=== PATIENT | female | born 1955 | race Two or more races ===

== ENCOUNTER 2017-03-26 18:20 | Emergency (ER) | payer MEDICARE ==
--- NOTE | 2017-03-26 20:13 | ER Document Report ---
ED Medical Screen (RME) - General Chief Complaint: Lower Abdominal Pain Stated Complaint: URINARY PROBLEM Time Seen by Provider: 03/26/17 20:06 Notes: Patient has had pain in the lower abdomen, suprapubic region, for about 2 weeks. It now goes around to the right flank, as well. She had a history of UTIs in the past with very similar symptoms to what she is having currently. However, she also has some other medical conditions including diverticulitis. She is nauseated but not vomiting. No chest pains. No cough or cold or chest congestion. Has felt like she had a fever. History of hypertension and NIDDM. Patient speaks only Greek so we used our metal products viewer Tomasa. TRAVEL OUTSIDE OF THE [place] IN LAST 30 DAYS: No - Related Data Allergies/Adverse Reactions: aspirin Allergy (Verified 03/26/17 18:29) Past Medical History - Social History Chew tobacco use (# tins/day): No Frequency of alcohol use: None Drug Abuse: None - Past Medical History Cardiac Medical History: Reports: Hx Hypertension Endocrine Medical History: Reports: Hx Diabetes Mellitus Type 2 Renal/ Medical History: Denies: Hx Peritoneal Dialysis GI Medical History: Reports: Hx Gastroesophageal Reflux Disease Musculoskeltal Medical History: Reports Hx Arthritis - RA Surgical Hx: Negative - Immunizations Hx Diphtheria, Pertussis, Tetanus Vaccination: Yes Physical Exam - Vital signs Vitals: Temp Pulse Resp BP Pulse Ox 98.1 F 68 16 177/80 H 96 03/26/17 18:31 03/26/17 18:31 03/26/17 18:31 03/26/17 18:31 03/26/17 18:31 Course - Vital Signs Vital signs: Temp Pulse Resp BP Pulse Ox 98.1 F 68 16 177/80 H 96 03/26/17 18:31 03/26/17 18:31 03/26/17 18:31 03/26/17 18:31 03/26/17 18:31
[2017-03-26 20:41] LABS: ABSOLUTE BASOPHILS # (AUTO) 0.1 10^3/uL (0.0-0.2); ABSOLUTE EOSINOPHILS # (AUTO) 0.1 10^3/uL (0.0-0.6); ABSOLUTE LYMPHOCYTES (AUTO) 2.5 10^3/uL (0.5-4.7); ABSOLUTE MONOCYTES (AUTO) 0.5 10^3/uL (0.1-1.4); BASOPHILS % (AUTO) 0.6 % (0-2); EOSINOPHILS % (AUTO) 1.1 % (0-6); HEMATOCRIT 41.2 % (36.0-47.0); HEMOGLOBIN 13.5 g/dL (12.0-15.5); HGB HCT DIFFERENCE -0.7; LYMPHOCYTES % (AUTO) 30.2 % (13-45); MEAN CORPUSCULAR HGB CONC 32.7 g/dL (32.0-36.0); MEAN CORPUSCULAR VOLUME 86 fl (80-97); MONOCYTES % (AUTO) 6.7 % (3-13); RED BLOOD COUNT 4.82 10^6/uL (3.72-5.28); SEGMENTED NEUTROPHILS % (AUTO) 61.4 % (42-78); WHITE BLOOD COUNT 8.2 10^3/uL (4.0-10.5)
[2017-03-26 20:46] LABS: APPEARANCE,URINE CLEAR; BILIRUBIN,URINE NEGATIVE (NEGATIVE); GLUCOSE, URINE NEGATIVE (NEGATIVE); KETONES,URINE NEGATIVE (NEGATIVE); LEUKOCYTE ESTERASE,URINE NEGATIVE (NEGATIVE); NITRITE,URINE NEGATIVE (NEGATIVE); PROTEIN,URINE NEGATIVE (NEGATIVE); URINE SPECIFIC GRAVITY 1.001; UROBILINOGEN,URINE NEGATIVE mg/dL (<2.0)
[2017-03-26 21:08] LABS: ALANINE AMINOTRANSFERASE 23 U/L (9-52); ALBUMIN 4.3 g/dL (3.5-5.0); ALKALINE PHOSPHATASE 89 U/L (38-126); ANION GAP 11 (5-19); ASPARTATE AMINO TRANSFERASE 23 U/L (14-36); BILIRUBIN,DIRECT 0.2 mg/dL (0.0-0.4); BILIRUBIN,TOTAL 0.5 mg/dL (0.2-1.3); BLOOD UREA NITROGEN 8 mg/dL (7-20); CALCIUM 9.9 mg/dL (8.4-10.2); CARBON DIOXIDE 26 mmol/L (22-30); CHLORIDE 95 mmol/L (98-107); CREATININE RESULT 0.59 mg/dL (0.52-1.25); GLUCOSE 78 mg/dL (75-110); LIPASE 201.2 U/L (23-300); POTASSIUM 3.9 mmol/L (3.6-5.0); TOTAL PROTEIN 7.4 g/dL (6.3-8.2)
--- NOTE | 2017-03-26 21:47 | ER Document Report ---
ED GI/ - General Mode of Arrival: Ambulatory Information source: Patient, Relative TRAVEL OUTSIDE OF THE [place] IN LAST 30 DAYS: No - HPI Onset: Other - Refer to HPI notes <SIRIA HARTMAN - Last Filed: 03/26/17 22:39> <CASSIE MARINA - Last Filed: 03/27/17 02:24> - General Chief Complaint: Lower Abdominal Pain Stated Complaint: URINARY PROBLEM Time Seen by Provider: 03/26/17 20:06 Notes: Patient is a 61 year old female presenting to the emergency department for suprapubic abdominal pain and umbilical abdominal pain. Patient is from [place] visiting her daughter and has been here for 2 weeks and a few days; patient's pain has been present for about 2 weeks. Patient also has nausea but no vomiting. Patient has not taken her temperature but states she has woken up with sweats and has been really thirsty. Patient also complains of some back pain. Patient is Tajik speaking and her daughter translates all information during the HPI, exam etc. Patient has had previous UTIs and has had diverticulitis in the past. Patient also has a history of diabetes mellitus, GERD, hypertension, and rheumatoid arthritis. (SIRIA HARTMAN) - Related Data Allergies/Adverse Reactions: aspirin Allergy (Verified 03/26/17 18:29) Past Medical History - General Information source: Patient - Social History Smoking Status: Never Smoker Cigarette use (# per day): No Chew tobacco use (# tins/day): No Smoking Education Provided: No Frequency of alcohol use: None Drug Abuse: None Family History: None Patient has suicidal ideation: No Patient has homicidal ideation: No - Past Medical History Cardiac Medical History: Reports: Hx Hypertension Endocrine Medical History: Reports: Hx Diabetes Mellitus Type 2 GI Medical History: Reports: Hx Diverticulitis, Hx Gastroesophageal Reflux Disease Musculoskeltal Medical History: Reports Hx Arthritis - RA Surgical Hx: Negative - Immunizations Hx Diphtheria, Pertussis, Tetanus Vaccination: Yes <SIRIA HARTMAN - Last Filed: 03/26/17 22:39> Review of Systems - Review of Systems Constitutional: No symptoms reported EENT: No symptoms reported Cardiovascular: No symptoms reported Respiratory: No symptoms reported Gastrointestinal: See HPI, Abdominal pain Genitourinary: No symptoms reported Female Genitourinary: No symptoms reported Musculoskeletal: See HPI, Back pain Skin: No symptoms reported Hematologic/Lymphatic: No symptoms reported Neurological/Psychological: No symptoms reported -: Yes All other systems reviewed and negative <SIRIA HARTMAN - Last Filed: 03/26/17 22:39> Physical Exam - Vital signs Interpretation: Hypertensive <SIRIA HARTMAN - Last Filed: 03/26/17 22:39> <LAINAJENYN AlbrechtCASSIE - Last Filed: 03/27/17 02:24> - Vital signs Vitals: Temp Pulse Resp BP Pulse Ox 98.1 F 68 16 177/80 H 96 03/26/17 18:31 03/26/17 18:31 03/26/17 18:31 03/26/17 18:31 03/26/17 18:31 - Notes Notes: GENERAL: Alert, interacts well. No acute distress. HEAD: Normocephalic, atraumatic. EYES: Pupils equal, round, and reactive to light. Extraocular movements intact. ENT: Oral mucosa moist, tongue midline. NECK: Full range of motion. Supple. Trachea midline. LUNGS: Clear to auscultation bilaterally, no wheezes, rales, or rhonchi. No respiratory distress. HEART: Regular rate and rhythm. No murmurs, gallops, or rubs. ABDOMEN: Soft, umbilical and suprapubic tenderness with palpation, firm mass over the suprapubic region. Obese. Non-distended. Bowel sounds present in all 4 quadrants. EXTREMITIES: Moves all 4 extremities spontaneously. No edema. NEUROLOGICAL: Alert and oriented x3. Normal speech, Tajik speaking. PSYCH: Normal affect, normal mood. SKIN: Warm, dry, normal turgor. No rashes or lesions noted. (SIRIA HARTMAN) Course - Laboratory Result Diagrams: 03/26/17 20:10 03/26/17 20:10 <SIRIA HARTMAN - Last Filed: 03/26/17 22:39> - Laboratory Result Diagrams: 03/26/17 20:10 03/26/17 20:10 - Diagnostic Test Radiology reviewed: Image reviewed, Reports reviewed - Double contrasted CT scan of the abdomen and pelvis does not show any abnormality. <CASSIE MARINA - Last Filed: 03/27/17 02:24> - Re-evaluation Re-evalutation: 03/27/17 02:[address] scan is unremarkable. The white blood cell count is low normal with no suggestion of infection. The pain started shortly after she arrived here from [place]. I suspect she did some heavy lifting of luggage and that is what is causing her abdominal pain. She does have a history of diverticulosis and a doctor who will frequently put her on antibiotics for her abdominal discomfort. I explained to the patient through her daughter that there was no suggestion of inflammation, diverticulitis, and the fact that this is been going on for 2 weeks without any development of inflammatory process, it was very unlikely to be anything other than muscle strain. (CASSIE MARINA) - Vital Signs Vital signs: Temp Pulse Resp BP Pulse Ox 98.1 F 67 16 158/96 H 96 03/26/17 18:31 03/26/17 21:33 03/26/17 21:33 03/26/17 21:33 03/26/17 21:33 - Laboratory Laboratory results interpreted by me: 03/26/17 20:10 Sodium 132.0 L Chloride 95 L Discharge <SIRIA HARTMAN - Last Filed: 03/26/17 22:39> <CASSIE MARINA - Last Filed: 03/27/17 02:24> - Discharge Clinical Impression: Abdominal pain Qualifiers: Abdominal location: lower abdomen, unspecified Qualified Code(s): R10.30 - Lower abdominal pain, unspecified Condition: Stable Disposition: HOME, SELF-CARE Additional Instructions: Abdominal Pain: There are many causes of abdominal pain. Pain can mean a serious problem requiring surgery (such as appendicitis). It can also be an innocent problem that goes away on its own (such as a viral infection). Often, time must pass to determine the cause of pain. The physician does not feel that hospitalization is necessary, at present. Things may change within the next 24 hours. Call the doctor or come back for re- examination if any problems occur, such as: (1) Pain that becomes more severe, steady, or becomes concentrated in one specific area. Also, pain that is more severe with movement or coughing. (2) Vomiting that persists or becomes more frequent. (3) Blood in the vomitus, urine, or bowel movements. Blood in the stool may have a tarry or black appearance. (4) Shaking chills or fever greater than 100 degrees F. (5) The abdomen becomes more distended or swollen. (6) Bowel movements cease. (7) Failure to improve as expected. Your lab work does not show any abnormalities to suggest an infectious process. Your contrasted CT scan of the abdomen and pelvis does not show any abnormality. I suspect your anterior abdominal discomfort for the last 2 weeks may be related to muscle strain. Try to avoid any activity that seems to make your discomfort worse. RETURN TO THE EMERGENCY ROOM IF ANY NEW OR WORSENING SYMPTOMS. Scribe Documentation - Scribe Written by Sasha:: Sasha Glass 03/26/2017 22:45 acting as scribe for :: Laina <SIRIA HARTMAN - Last Filed: 03/26/17 22:39>
--- NOTE | 2017-03-27 02:01 | RADIOLOGY REPORT (SQ) ---
EXAM DESCRIPTION: CT ABD/PELVIS WITH IV ORAL COMPLETED DATE/TIME: 03/27/2017 1:29 am REASON FOR STUDY: LOWER ABD PAIN X 2 WEEKS COMPARISON: None. TECHNIQUE: CT scan of the abdomen and pelvis performed using helical scanning technique with dynamic intravenous contrast injection. No oral contrast. Images reviewed with lung, soft tissue, and bone windows. Reconstructed coronal and sagittal MPR images reviewed. Delayed images for evaluation of the urinary system also acquired. All images stored on PACS. All CT scanners at this facility use dose modulation, iterative reconstruction, and/or weight based d osing when appropriate to reduce radiation dose to as low as reasonably achievable (ALARA). [facility]: Dose Right [facility]: CareDose [facility]: Dose Right [facility]: Teradose 4D [facility]: Mytonomy CONTRAST TYPE AND DOSE: contrast/concentration: Isovue 370.00 mg/ml; Total Contrast Delivered: 91.0 ml; Total Saline Delivered: 70.0 ml RENAL FUNCTION: Creatinine 0.6 RADIATION DOSE: Up-to-date CT equipment and radiation dose reduction techniques were employed. CTDIv ol: 17.7 mGy. DLP: 1909 mGy-cm.. LIMITATIONS: Mild motion artifact. FINDINGS: LOWER CHEST: No significant findings. No nodules or infiltrates. LIVER: Normal size. No masses. No dilated ducts. SPLEEN: Normal size. No focal lesions. PANCREAS: No masses. No significant calcifications. No adjacent inflammation or peripancreatic fluid collections. Pancreatic duct not dilated. GALLBLADDER: Surgically absent. ADRENAL GLANDS: No significant masses or asymmetry. RIGHT KIDNEY AND URETER: No solid masses. No significant calcifications. No hydronephrosis or hyd roureter. Likely benign small cyst. LEFT KIDNEY AND URETER: No solid masses. No significant calcifications. No hydronephrosis or hydr oureter. Likely benign small cyst. AORTA AND VESSELS: No aneurysm. No dissection. Renal arteries, SMA, celiac without stenosis. RETROPERITONEUM: No retroperitoneal adenopathy, hemorrhage or masses. BOWEL AND PERITONEAL CAVITY: No masses or inflammatory changes. No free fluid or peritoneal masses. APPENDIX: Normal. PELVIS: No mass or free fluid. Normal bladder. ABDOMINAL WALL: No masses. No hernias. BONES: Grade 1 0.3 cm degenerative L4 anterolisthesis, small disc bulge, and mild L4-L5 spondylosis w ith mild bilateral L4 foraminal stenoses. Mild lower thoracic disc desiccation. OTHER: No other significant finding. IMPRESSION: NO SIGNIFICANT OR ACUTE FINDING IN THE ABDOMEN OR PELVIS ON CT SCAN WITH IV CONTRAST. TECHNICAL DOCUMENTATION: JOB ID: [id number] Quality ID # [id number]: Final reports with documentation of one or more dose reduction techniques (e.g., Au tomated exposure control, adjustment of the mA and/or kV according to patient size, use of iterative reconstruction technique) 2010 [employer]- All Rights Reserved
[2017-03-27 02:32] VITALS: BP 137/99
== END 2017-03-27 02:28 | disposition home or self-care (01) ==
LOC: ER 18:20
DX: R10.30 Lower abdominal pain, unspecified (principal); R39.198 Other difficulties with micturition; E11.9 Type 2 diabetes mellitus without complications
CPT/HCPCS: 36415; 74177; 80053; 81001; 83690; 85025; 87086; 99284